=== PATIENT | male | born 1985 | race Caucasian/White ===

== ENCOUNTER 2017-08-26 10:27 | Day surgery (SDC) | payer BC ==
[2017-08-25 10:44] VITALS: BMI 34.4
[2017-08-26] MEDS ORDERED: PROPOFOL 20 ML ONE ×2 (13:33)
[2017-08-26] MEDS ORDERED: MIDAZOLAM HCL 2 MG/2 ML SINGLE DOSE VIAL ONE (13:33)
[2017-08-26] MEDS ORDERED: LIDOCAINE HCL/PF 2% SDV 5ML VIAL ONE (13:34)
[2017-08-26] MEDS ORDERED: ceFAZolin SODIUM 1 GM VIAL IVPB ONE (14:00)
[2017-08-26] MEDS ORDERED: LIDOCAINE HCL 1%, 10 MG/ML (20ML VIAL) INF ONE (14:47)
[2017-08-26] MEDS ORDERED: BUPIVACAINE HCL/PF (5 MG/ML) 30 ML VIAL IJ ONE (14:50)
[2017-08-26] MEDS ORDERED: ONDANSETRON 4 MG/2 ML VIAL IVPUSH PRN (15:07)
[2017-08-26] MEDS ORDERED: oxyCODONE HCL 5 MG TABLET PO PRN ×3 (15:07→15:37)
[2017-08-26] MEDS ORDERED: ACETAMINOPHEN 325 MG TABLET (FP) PO PRN (15:37)
--- NOTE | 2017-08-26 15:54 | CONS ---
DATE OF CONSULTATION: DATE OF DICTATION: 08/26/2017 HISTORY OF PRESENT ILLNESS: Patient is a 32-year-old male with a history of recurrent balanitis and penile pain during erection. Patient states that due to curvature of the penis, he has painful erections. He is unable to retract his foreskin for the past several years. He has presently got diminished libido and was found to have hypogonadism. He has been on testosterone replacement therapy. He denies any allergies or medications. He denies sexually transmitted diseases. Chest is clear. Abdomen is soft, no CVA tenderness. Genitalia revealed phimotic penile foreskin with multiple condyloma. Meatus is adequate. Testes are normal in size and consistency. Scrotum appears to be attached to the midshaft of the ventral aspect of the penis. Frenulum is scarred and contracted. Foreskin was unable to be retracted due to pain and tightness. Testes are normal in size and consistency, no hernias or hydroceles are elicited. 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 PLAN: Penoplasty circumcision. Donn [id number]
[2017-08-26 16:37] VITALS: TEMP 98.7
[2017-08-26 17:03] VITALS: BP 133/65; PULSE 82
--- NOTE | 2017-08-26 19:57 | OP ---
DATE OF OPERATION: 08/26/2017 PREOPERATIVE DIAGNOSES: Patient is a 32-year-old male with history of recurrent phimosis, genital warts, and penile chordee and painful erections with frenular scarring. POSTOPERATIVE DIAGNOSES: Patient is a 32-year-old male with history of recurrent phimosis, genital warts, and penile chordee and painful erections with frenular scarring. OPERATIVE PROCEDURE: Penoplasty and circumcision as well as a penile block. DESCRIPTION OF PROCEDURE: Under above-stated anesthesia, patient was prepped and draped in the usual sterile manner. He is placed in the supine position. A 1/3-inch Lucretia was used as a tourniquet and placed at the base of the penis. A butterfly was inserted into the right corporal body, and normal saline was injected into the right corpora. An artificial erection was created. 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 There was also phimosis which was unable to be retracted. The high-riding scrotum was then taken care of by placing a Deepak clamp on the ventral base of the penis for a distance of 4 cm. The area below was excised with a scalpel. The defect in the ventral base of the penis was closed using 4-0 Vicryl suture ligatures. The scrotal skin was closed with 2 layers of 3-0 chromic suture ligatures and 4-0 mattress suture ligatures. A repeat artificial erection using the [place] drain as a tourniquet and injecting the right corpora with 70 mL of normal saline revealed straightening of the penis. Therefore, a circumferential incision was made around the redundant foreskin. The foreskin was retracted, and the area was cleaned. A circumferential incision was made 0.5 cm proximal to the black of the penis. This was carried down through skin and subcutaneous tissue. At the level of the frenulum, a clamp was placed proximally and distally, and the frenular artery was excised. The proximal end was tied with 2-0 Vicryl suture ligatures. The distal end was tied with 3-0 Vicryl suture ligatures. The 2 edges were then connected by a longitudinal incision, and using both blunt and sharp dissection, the entire redundant foreskin was dissected off the shaft of the penis. Bleeding was controlled with electrofulguration and 4-0 Vicryl ties. Two areas of the penis needed a [id number] 4-0 Vicryl suture ligature to stop venous bleeding. Afterwards, skin from the glans and skin from the shaft was approximated using 4-0 chromic suture ligatures. The penis was first divided into 4 quadrants at the 12, 3, 6, and 9 o'clock positions. Then, each quadrant was divided in half, and each half was also divided with a 4-0 chromic suture ligature. No active bleeding was noted. Bacitracin was placed around the wounds. Coban was used as pressure dressing for the entire penile shaft as well as the circumcision sites. Fluff and a scrotal support were used for the scrotal wounds. No active bleeding was noted. The patient tolerated the procedure well. He returned to the recovery room in good condition. Donn [id number]
--- NOTE | 2017-08-31 14:46 | PATH ---
Surgical Pathology Report Patient Name: KAVITA GODINEZ JR Med. Rec. #: [id number] /Age/Gender: 1985 (Age: 32) / M Account: [id number] Location: [facility] Taken: 08/26/2017 Received: 08/29/2017 Reported: 08/31/2017 Physicians: Alexis Parker M.D. Specimen(s) Received FORESKIN Clinical History Phimosis Final Diagnosis FORESKIN, CIRCUMCISION: FORESKIN WITH NO PATHOLOGIC FINDINGS. Electronically Signed Prudecne Leon M.D. Gross Description Received in formalin labeled "foreskin," is a 2.8 x 2.0 x 1.8 cm brown, irregular, wrinkled portion of skin, consistent with foreskin. No discrete epidermal lesions are identified. A agency service representative section is submitted in one cassette. 08/29/201708/29/2017
== END 2017-08-26 16:50 | disposition home or self-care (01) ==
LOC: JASU-SURG 10:27
PROVIDERS: ATTEND Urology
PROC: 0VNS0ZZ Release Penis, Open Approach (ICD-10-PCS; 2017-08-26)
PROC: 0VTTXZZ Resection of Prepuce, External Approach (ICD-10-PCS; principal; 2017-08-26 12:00)
DX: N47.1 Phimosis (principal); A63.0 Anogenital (venereal) warts; N48.89 Other specified disorders of penis
CPT/HCPCS: 88302-TC; 94760